=== PATIENT | male | born 1960 | race Caucasian/White ===

== ENCOUNTER 2022-01-23 12:43 | Outpatient (CLI) | payer OTHER, SELFPAY ==
--- NOTE | 2022-01-23 13:00 | MR_ITS ---
[facility] [address] [facility] [address] Phone:?[phone] Fax:?[phone] Referring Physician Information: Drew Aleman M.D. [address] [facility] [address] Phone:?[phone] Fax:?[phone] Patient:Familia Cai D.O.B:?1960 Sex:?Male Phone:?[phone] [facility] MRN:?[id number] Exam Date:?01/23/2022 ? EXAM: MR LUMBAR SPINE WITHOUT CONTRAST 1.5T CLINICAL INFORMATION: Thoracic and low back pain. No injury. TECHNICAL INFORMATION: T1, T2 and STIR sagittal sections through the lumbar spine with T1 and T2 FSE stacked axial and axial oblique sections at selected levels. COMPARISON IMAGES: No comparisons. INTERPRETATION:?Segmentation and Alignment: Lordotic alignment of five lumbar- type vertebrae. Sacrum and Sacroiliac joints:?Normal sacrum and sacroiliac joints. L5-S1: Moderate disc degeneration with a 3 mm broad-based left paracentral disc protrusion, normal facet joints and no stenosis or impingement. L4-5 and L3-4: Mild disc degeneration with normal facet joints and no stenosis or impingement. L2-3, L1-2 and T12-L1: Intervertebral discs unremarkable with mild spondylosis at L2-3 and L1-2, normal facet joints at each level and no stenosis or impingement. Conus: Normal signal intensity within the conus medullaris. No intradural mass or arachnoidal adhesions. Osseous structures: A 19 mm benign intraosseous hemangiomas seen within the right S2 vertebral body. No fracture or avulsion. No osteolytic or destructive bone lesion. Paraspinous soft tissues:?No paraspinous soft tissue mass or fluid collection. Incidental note is made of multiple renal cortical cysts measuring up to 2.8 cm on the right. CONCLUSION: 1. L5-S1, L4-5 and L3-4 disc degeneration. 2. 3 mm left paracentral disc protrusion at L5-S1. 3. No significant central or foraminal stenosis and no neural impingement. 4. No cord abnormality, and no neoplasm, fracture or infection. Electronically signed on 01/24/2022 9:10:00 AM by John Soliz M.D.
--- NOTE | 2022-01-23 13:45 | MR_ITS ---
[facility] [address] [facility] [address] Phone:?[phone] Fax:?[phone] Referring Physician Information: Drew Aleman M.D. [address] [facility] [address] Phone:?[phone] Fax:?[phone] Patient:Familia Cai D.O.B:?1960 Sex:?Male Phone:?[phone] [facility] MRN:?[id number] Exam Date:?01/23/2022 ? EXAM: MR THORACIC SPINE WITHOUT CONTRAST 1.5T CLINICAL INFORMATION: Back pain with thoracic kyphosis. No injury. TECHNICAL INFORMATION: T1, T2 FSE and STIR sagittal thin sections through the thoracic spine with T1, T2 GRE and T2 FSE axial sections at selected levels. COMPARISON IMAGES: Previous MRI examination dated 12/11/2016 is not available for immediate comparison. INTERPRETATION:?Cord: Normal signal intensity within the thoracic cord and conus medullaris. No intrinsic cord lesion and no cord edema or myelomalacia. No intradural mass. Segmentation and Alignment: 12 rib-bearing thoracic vertebrae with mild to moderate midthoracic Scheuermann's-like changes, thoracic hyperkyphosis and a mild to moderate mid thoracic curve to the right. L2-3 through T11-12: Normal intervertebral disc and facet joints. No stenosis or impingement. T10-11: Mild disc degeneration with normal facet joints and no stenosis or impingement. T9-10 through T3-4: Moderate to advanced disc degeneration with moderate endplate irregularities at T8-9 and T7-8, mild right facet arthropathy at T4-5 and T3-4, and no stenosis or impingement. T2-3 and T1-2: Intervertebral discs unremarkable with mild right facet arthropathy at T2-3 and no stenosis or impingement. Osseous structures and paraspinous soft tissues: Normal signal intensity within the vertebral marrow spaces. No fracture or avulsion. No osteolytic or destructive bone lesion.?No paraspinous soft tissue mass or fluid collection. CONCLUSION: 1. Thoracic hyperkyphosis with a mild to moderate mid thoracic curve to the right. 2. Diffuse mid and upper thoracic disc degeneration. 3. Mild facet arthropathy on the right at T4-5, T3-4 and T2-3. 4. No disc herniation, stenosis or impingement. 5. Comparison with 12/11/2016 shows that a small cephalad dissecting central posterior disc herniation previously seen at T7-8 has resorbed in the interval. Electronically signed on 01/26/2022 7:52:00 AM by John Soliz M.D.
== END 2022-01-23 12:44 | disposition home or self-care (01) ==
LOC: MRI 12:44
PROVIDERS: Visit Provider Family Medicine
DX: M54.50 Low back pain, unspecified (principal); M51.36 Other intervertebral disc degeneration, lumbar region; M51.37 Other intervertebral disc degeneration, lumbosacral region; M51.27 Other intervertebral disc displacement, lumbosacral region; M54.6 Pain in thoracic spine
CPT/HCPCS: 72146; 72148

== ENCOUNTER 2022-07-20 11:51 | Outpatient (CLI) | payer OTHER, SELFPAY ==
--- NOTE | 2022-07-20 11:30 | CRLHL7_ITS ---
For Patients: As a result of the Century Cures Act, medical imaging exams and procedure reports are released immediately into your electronic medical record. You may view this report before your referring provider. If you have questions, please contact your health care provider. INDICATION: Leg pain and swelling TECHNIQUE: Ultrasound venous duplex lower left extremity. Compression venous exam was performed using lew-scale, color Doppler, and spectral Doppler analysis. COMPARISON: None. FINDINGS: Sonographic imaging demonstrates the left common femoral, deep femoral, superficial femoral, popliteal, posterior tibial and greater saphenous and the contralateral right common femoral veins to be fully compressible with normal color Doppler blood flow. Avascular fluid collection within the popliteal fossa measuring 4.0 x 1.4 x 3.8 centimeters. IMPRESSION: 1. No evidence of deep venous thrombosis left lower extremity. 2. Left Peña`s cyst. Dictated by Joselito eMndoza MD @ 07/20/2022 12:46:23 PM (Electronically Signed)
== END 2022-07-20 11:52 | disposition home or self-care (01) ==
PROVIDERS: PCP Internal Medicine; Visit Provider Physician Assistant
DX: M79.605 Pain in left leg (principal); R22.42 Localized swelling, mass and lump, left lower limb; M71.22 Synovial cyst of popliteal space [Baker], left knee
CPT/HCPCS: 93971